=== PATIENT | male | born 1985 | race African-American/Black ===

== ENCOUNTER 2016-12-14 20:12 | Emergency (ER) | payer MEDICAID ==
[~2016-12-14] VITALS: Ht 175.3 cm; Wt 72.0 kg
[2016-12-14 20:50] VITALS: BP 144/90
[2016-12-14 21:22] LABS: CLARITY URINE CLEAR (CLEAR); COLOR URINE YELLOW (YELLOW); KETONES URINE NEGATIVE (NEGATIVE); LEUKOCYTE ESTERASE URINE NEGATIVE (NEGATIVE); NITRITE URINE NEGATIVE (NEGATIVE); OCCULT BLOOD URINE NEGATIVE (NEGATIVE); PROTEIN URINE NEGATIVE (NEGATIVE); SPECIFIC GRAVITY URINE 1.027 (1.005-1.030)
== END 2016-12-15 00:50 | disposition home or self-care (01) ==
LOC: ER 20:12
DX: A63.0 Anogenital (venereal) warts (principal)
CPT/HCPCS: 81003; 99283

== ENCOUNTER 2017-02-25 17:55 | Emergency (ER) | payer MEDICAID ==
[~2017-02-25] VITALS: Ht 180.3 cm; Wt 78.0 kg
[2017-02-25] MEDS ORDERED: ONDANSETRON HCL 4MG/2ML VIAL IV STA (23:18)
[2017-02-25] MEDS ORDERED: SODIUM CHLORIDE 0.9% 1,000 ML IV ONE (23:18)
[2017-02-25] MEDS ORDERED: KETOROLAC 30MG/ML VIAL IV STA (23:18)
[2017-02-25 23:42] LABS: BASOPHILS % 0.2 % (0.0-2.0); EOSINOPHILS % 0.1 % (0.0-5.0); HEMATOCRIT. 43.7 % (42.0-52.0); HEMOGLOBIN. 14.9 g/dL (14.0-18.0); MEAN CORPUSCULAR HEMOGLOBIN 30.3 pg (28.0-32.0); MEAN CORPUSCULAR VOLUME 88.5 fL (80.0-94.0); MEAN PLATELET VOLUME 7.6 fl (7.4-10.4); MONOCYTES % 7.3 % (2.0-8.0); NEUTROPHILS % 79.4 % (40.0-76.0); PLATELET 206 x1000/uL (130-400); RED BLOOD CELL COUNT 4.94 mill/uL (4.7-6.1); RED CELL DISTRIBUTION WIDTH 14.2 % (11.6-14.6)
[2017-02-25 23:48] LABS: CHLORIDE 104 mEq/L (98-107)
[2017-02-25 23:49] LABS: INR 1.1; PROTHROMBIN TIME 11.4 sec (9.4-11.6)
[2017-02-25 23:57] LABS: CARBON DIOXIDE 28 mEq/L (21-32)
[2017-02-26 00:42] LABS: CLARITY URINE TURBID (CLEAR); COLOR URINE YELLOW (YELLOW); GLUCOSE URINE 1+ (NEGATIVE); KETONES URINE 1+ (NEGATIVE); LEUKOCYTE ESTERASE URINE NEGATIVE (NEGATIVE); NITRITE URINE NEGATIVE (NEGATIVE); OCCULT BLOOD URINE NEGATIVE (NEGATIVE); PH URINE 5.5 (4.5-8.0); PROTEIN URINE TRACE (NEGATIVE); SPECIFIC GRAVITY URINE 1.031 (1.005-1.030)
[2017-02-26 01:10] VITALS: BP 124/74
== END 2017-02-26 01:59 | disposition home or self-care (01) ==
LOC: ER 17:55
DX: A08.4 Viral intestinal infection, unspecified (principal); F10.10 Alcohol abuse, uncomplicated; Y90.9 Presence of alcohol in blood, level not specified
CPT/HCPCS: 36415; 71010; 80053; 81001; 83690; 85025; 85610; 93005; 96374; 96375; 99285; J1885; J2405; J7030; Z7610

== ENCOUNTER 2018-01-25 21:38 | Emergency (ER) | payer MEDICAID ==
[~2018-01-25] VITALS: Ht 177.8 cm; Wt 73.0 kg
[2018-01-26] MEDS ORDERED: KETOROLAC 30MG/ML VIAL IM ONE (00:30)
[2018-01-26 02:11] VITALS: BP 120/80
== END 2018-01-26 02:12 | disposition home or self-care (01) ==
LOC: ER 21:38
DX: S63.91XA Sprain of unspecified part of right wrist and hand, initial encounter (principal); Z88.0 Allergy status to penicillin; Y08.89XA Assault by other specified means, initial encounter; Y93.89 Activity, other specified; Y92.89 Other specified places as the place of occurrence of the external cause; Y99.8 Other external cause status
CPT/HCPCS: 29125; 73130; 96372; 99284; J1885

== ENCOUNTER 2018-04-11 20:43 | Emergency (ER) | payer MEDICAID, MEDICARE ==
[~2018-04-11] VITALS: Ht 177.8 cm; Wt 78.0 kg
[2018-04-11 22:43] VITALS: BP 124/74
[2018-04-11] MEDS ORDERED: IBUPROFEN 600MG TABLET PO ONE (22:45)
== END 2018-04-11 23:20 | disposition home or self-care (01) ==
LOC: ER 20:43
DX: S61.210D Laceration without foreign body of right index finger without damage to nail, subsequent encounter (principal); W25.XXXD Contact with sharp glass, subsequent encounter; Z88.0 Allergy status to penicillin; Z98.890 Other specified postprocedural states
CPT/HCPCS: 99282

== ENCOUNTER 2018-10-08 21:33 | Emergency (ER) | payer MEDICAID, MEDICARE ==
[~2018-10-08] VITALS: Ht 175.3 cm; Wt 84.0 kg
[2018-10-09] MEDS ORDERED: MORPHINE SULFATE 4 MG/ML CPJ (NOT FOR IM USE) IV STA (00:34)
[2018-10-09] MEDS ORDERED: KETOROLAC 30MG/ML VIAL IV STA (00:34)
[2018-10-09] MEDS ORDERED: SODIUM CHLORIDE 0.9% 1,000 ML IV ONE (00:34)
[2018-10-09] MEDS ORDERED: ONDANSETRON HCL 4MG/2ML INJ IV STA (00:34)
[2018-10-09] MEDS ORDERED: MAGNESIUM/ALUMINUM HYDROXIDE/SIMETHICONE 30ML UDC PO ONE (00:45)
[2018-10-09] MEDS ORDERED: FAMOTIDINE 20MG/2ML VIAL IV ONE (00:45)
[2018-10-09 00:51] LABS: BASOPHILS % 0.8 % (0.0-2.0); EOSINOPHILS % 0.8 % (0.0-5.0); HEMATOCRIT. 44.8 % (42.0-52.0); HEMOGLOBIN. 15.5 g/dL (14.0-18.0); LYMPHOCYTES % 54.5 % (20.0-50.0); MEAN CORPUSCULAR HEMOGLOBIN 30.9 pg (28.0-32.0); MEAN CORPUSCULAR VOLUME 89.4 fL (80.0-94.0); MEAN PLATELET VOLUME 7.7 fl (7.4-10.4); MONOCYTES % 11.7 % (2.0-8.0); NEUTROPHILS % 32.2 % (40.0-76.0); PLATELET 200 x1000/uL (130-400); RED BLOOD CELL COUNT 5.01 mill/uL (4.7-6.1); RED CELL DISTRIBUTION WIDTH 14.4 % (11.6-14.6)
[2018-10-09 00:56] LABS: CHLORIDE 106 mEq/L (98-107)
[2018-10-09 01:00] LABS: ETHANOL BLOOD < 10 mg/dL
[2018-10-09 01:13] LABS: *AMPHETAMINES SCREEN URINE NEGATIVE (NEGATIVE); *BARBITURATES SCREEN URINE NEGATIVE (NEGATIVE); *BENZODIAZEPINES SCREEN URINE NEGATIVE (NEGATIVE); *COCAINE SCREEN URINE NEGATIVE (NEGATIVE)
[2018-10-09 01:14] LABS: CANNABINOID URINE SCREEN NEGATIVE (NEGATIVE); OPIATES URINE SCREEN NEGATIVE (NEGATIVE); PHENCYCLIDINE URINE SCREEN NEGATIVE (NEGATIVE)
[2018-10-09 01:15] LABS: METHADONE URINE SCREEN NEGATIVE (NEGATIVE)
[2018-10-09 02:13] VITALS: BP 107/69
== END 2018-10-09 02:15 | disposition home or self-care (01) ==
LOC: ER 21:33
DX: R10.13 Epigastric pain (principal); R07.89 Other chest pain; Z88.0 Allergy status to penicillin
CPT/HCPCS: 36415; 71045; 80053; 80305; 80320; 83690; 83880; 84484; 85025; 85379; 93005; 96374; 96375; 99284; J1885; J2270; J2405; J3490; J7030; Z7610; A4565; G0480

== ENCOUNTER 2018-12-27 00:17 | Emergency (ER) | payer OTHER, MEDICAID ==
[~2018-12-27] VITALS: Ht 177.8 cm; Wt 75.0 kg
[2018-12-27] MEDS ORDERED: ACETAMINOPHEN 325MG TABLET PO STA (06:41)
[2018-12-27] MEDS ORDERED: ALBUTEROL (0.083%) 2.5MG/3ML NEB HHN STA (06:41)
[2018-12-27 08:12] VITALS: BP 108/73
== END 2018-12-27 08:26 | disposition home or self-care (01) ==
LOC: ER 00:17
DX: J40 Bronchitis, not specified as acute or chronic (principal); Z88.0 Allergy status to penicillin
CPT/HCPCS: 71045; 94640; 99283; J7611; Z7610

== ENCOUNTER 2019-03-09 00:52 | Emergency (ER) | payer OTHER, MEDICAID ==
[~2019-03-09] VITALS: Ht 180.3 cm; Wt 73.0 kg
[2019-03-09 01:13] VITALS: BP 122/82
[2019-03-09] MEDS ORDERED: IBUPROFEN 600MG TABLET PO ONE (03:00)
== END 2019-03-09 05:01 | disposition home or self-care (01) ==
LOC: ER 00:52
DX: S60.221A Contusion of right hand, initial encounter (principal); F41.9 Anxiety disorder, unspecified; F17.210 Nicotine dependence, cigarettes, uncomplicated; Z88.0 Allergy status to penicillin; W22.01XA Walked into wall, initial encounter; Y93.89 Activity, other specified; Y92.018 Other place in single-family (private) house as the place of occurrence of the external cause
CPT/HCPCS: 73110; 73130; 99283

== ENCOUNTER 2023-10-15 03:06 | Emergency (ER) | payer OTHER, MEDICAID ==
[~2023-10-15] VITALS: Ht 175.3 cm; Wt 100.0 kg
[2023-10-15 03:09] VITALS: O2SAT 99
[2023-10-15 03:18] VITALS: TEMP 98
[2023-10-15] MEDS: ONDANSETRON HCL 4MG/2ML INJ IV STA (04:09)
[2023-10-15] MEDS: MORPHINE SULFATE 4 MG/ML INJ (FOR IV/IM USE) IV STA (04:09)
[2023-10-15] MEDS: SODIUM CHLORIDE 0.9% 1,000 ML IV ONE (04:09)
[2023-10-15 04:54] LABS: CLARITY URINE CLEAR (CLEAR); COLOR URINE YELLOW (YELLOW); GLUCOSE URINE NEGATIVE (NEGATIVE); KETONES URINE NEGATIVE (NEGATIVE); LEUKOCYTE ESTERASE URINE NEGATIVE (NEGATIVE); NITRITE URINE NEGATIVE (NEGATIVE); OCCULT BLOOD URINE NEGATIVE (NEGATIVE); PROTEIN URINE TRACE (NEGATIVE); SPECIFIC GRAVITY URINE 1.021 (1.005-1.030)
[2023-10-15 04:54] LABS: CHLORIDE 107 mEq/L (98-107); POTASSIUM 3.5 mEq/L (3.5-5.1); SODIUM 140 mEq/L (136-145)
[2023-10-15 04:55] LABS: BASOPHILS % 0.6 % (0.0-2.0); CALCIUM 10.2 mg/dL (8.7-10.4); CARBON DIOXIDE 28 mEq/L (21-32); EOSINOPHILS % 0.5 % (0.0-5.0); HEMATOCRIT. 46.4 % (42.0-52.0); HEMOGLOBIN. 15.9 g/dL (14.0-18.0); LYMPHOCYTES % 55.3 % (20.0-50.0); MEAN CORPUSCULAR HEMOGLOBIN 31.2 pg (28.0-32.0); MEAN CORPUSCULAR HGB CONC 34.3 g/dL (31.0-37.0); MEAN CORPUSCULAR VOLUME 90.9 fL (80.0-94.0); MEAN PLATELET VOLUME 8.3 fl (7.4-10.4); MONOCYTES % 9.5 % (2.0-8.0); NEUTROPHILS % 34.1 % (40.0-76.0); PLATELET 222 x1000/uL (130-400); RED CELL DISTRIBUTION WIDTH 14.3 % (11.6-14.6); WHITE BLOOD COUNT 5.7 x1000/uL (4.5-11.0)
[2023-10-15 05:00] LABS: CREATININE 1.2 mg/dL (0.6-1.3); ETHANOL BLOOD 89 mg/dL (<10); GLUCOSE 116 mg/dL (70-105); UREA NITROGEN BLOOD 13 mg/dL (9-23)
[2023-10-15 05:02] LABS: ALANINE AMINOTRANSFERASE 34 IU/L (10-49); ALBUMIN 4.4 g/dL (3.2-4.8); ASPARTATE AMINOTRANSFERASE 24 IU/L (<34); BILIRUBIN DIRECT 0.1 mg/dL (<=3.0); BILIRUBIN TOTAL 0.4 mg/dL (0.1-1.0); LACTIC ACID 2.6 mmol/L (0.4-2.0); PROTEIN TOTAL 7.5 g/dL (6.0-8.3)
[2023-10-15] MEDS: MORPHINE SULFATE 4 MG/ML INJ (FOR IV/IM USE) IV NR (05:27)
[2023-10-15 06:10] LABS: BACTERIA URINE NONE SEEN; RBC URINE 0-2 /hpf (0-2); SQUAMOUS EPITHELIAL CELL URINE NONE SEEN /lpf (RARE/1+); WBC URINE NONE SEEN /hpf (0-2)
[2023-10-15 09:47] VITALS: BP 121/30; PULSE 71; RESP 16
[2023-10-15] MEDS ORDERED: HYDR-4005 MT (10:15)
[2023-10-15] MEDS ORDERED: ONDA4TAB11 PO (10:15)
== END 2023-10-15 10:35 | disposition home or self-care (01) ==
LOC: ER 03:45
DX: K80.80 Other cholelithiasis without obstruction (principal)
CPT/HCPCS: 80076; 80048; 81003; 80320; 83605; 83690; 85025; 36415; 71045; 76705; 96361; 96374; 96375; 96376; 99285; J2405; J2270; J7030; G0480